=== PATIENT | female | born 1950 ===

== ENCOUNTER 2022-11-03 17:42 | Inpatient (IN) ==
[2022-11-03] MEDS ORDERED: Lactated Ringers 1000 ml BAG 1,000 ML IV ONE ×2 (18:18→21:39)
[2022-11-03 18:58] LABS: Activated Partial Thrombo Time 32.8 seconds (26.0-38.0); INR 1.04 (0.83-1.13)
[2022-11-03 19:02] LABS: Albumin 3.7 g/dL (3.2-5.2); Calcium 8.1 mg/dL (8.6-10.3); Total Bilirubin 0.4 mg/dL (0.2-1.0)
[2022-11-03 19:08] LABS: Albumin/Globulin Ratio 1.2 (1-3); C Reactive Protein 197.13 mg/L (<8.01); Creatinine, Serum 1.06 mg/dL (0.51-0.95); Total Protein 6.7 g/dL (6.4-8.9); eGFR CKD-EPI 55.1 (>60)
[2022-11-03 19:17] LABS: Hematocrit 37.8 % (35-45); Hemoglobin 12.5 g/dL (11.5-14.3); Mean Corpuscular Hemoglobin 28.4 pg (27-33); Mean Corpuscular Hgb Conc 33.1 g/dL (31-36); Red Blood Count 4.39 10^6/uL (3.63-4.92); White Blood Count 6.6 10^3/uL (3.8-11.8)
[2022-11-03 19:44] LABS: High Sensitivity Troponin 1 Hr 13 pg/mL (<15)
[2022-11-03] MEDS ORDERED: Piperacillin/Tazobac 3.375 BAG 3.375 GM/100 ML BAG IV ONE ×2 (19:44→20:17)
[2022-11-03 20:26] LABS: ABS Lymphocytes 0.7 10^3/uL (1.0-4.8); ABS Monocytes 0.2 10^3/uL (0.0-0.9); ABS Neutrophils 5.7 10^3/uL (1.5-7.6); Lymphocyte % 10.7 %; Mean Platelet Volume 9.5 fL (7.5-11.2); Platelet Count 92 10^3/uL (150-450)
[2022-11-03 20:27] LABS: Urine Appearance Cloudy; Urine Bilirubin Negative (Negative); Urine Blood 1+ (Negative); Urine Color Yellow; Urine Glucose Negative (Negative); Urine Ketones 1+ (Negative); Urine Nitrite Negative (Negative); Urine Protein 1+(30 mg/dL) (Negative); Urine Specific Gravity 1.019 (1.002-1.030); Urine Urobilinogen Negative (Negative)
[2022-11-03 21:05] LABS: Urine Bacteria Absent (Absent); Urine Red Blood Cell 1+(3-5/hpf) (Absent); Urine Squamous Epithelial Cell Present (Absent); Urine White Blood Cell Trace(0-5/hpf) (Absent)
[2022-11-03] MEDS ORDERED: DOXYcycline 100 MG in NS 0.9% 250 ml 250 ML IVPB ONE (21:15)
[2022-11-03] MEDS: Enoxaparin 40 MG/0.4 ML SYR SUBCUT SCH (23:59)
[2022-11-04 00:31] LABS: Urine Benzodiazepine Screen None Detected (None Detect); Urine Cannabinoids Screen None Detected (None Detect); Urine Opiates Screen None Detected (None Detect)
[2022-11-04 05:10] LABS: Hematocrit 32.5 % (35-45); Hemoglobin 11.2 g/dL (11.5-14.3); Mean Corpuscular Hemoglobin 29.3 pg (27-33); Mean Corpuscular Hgb Conc 34.4 g/dL (31-36); Mean Corpuscular Volume 85.2 fL (80-97); Red Blood Count 3.81 10^6/uL (3.63-4.92); White Blood Count 5.6 10^3/uL (3.8-11.8)
[2022-11-04 05:28] LABS: Calcium 7.5 mg/dL (8.6-10.3); Creatinine, Serum 1.11 mg/dL (0.51-0.95); Magnesium 1.9 mg/dL (1.9-2.7); Potassium 3.8 mmol/L (3.5-5.0); eGFR CKD-EPI 52.2 (>60)
[2022-11-04 07:00] LABS: ABS Monocytes 0.3 10^3/uL (0.0-0.9); ABS Neutrophils 4.3 10^3/uL (1.5-7.6); ABS Nucleated RBC 0.01 10^3/ul; Lymphocyte % 18.6 %; Nucleated Red Blood Cells % 0.1 /100 WBC (0.0-0.4); Platelet Count 60 10^3/uL (150-450)
[2022-11-04] MEDS ORDERED: DOXYcycline 100 MG in NS 0.9% 250 ml 250 ML IVPB SCH (09:00)
[2022-11-04] MEDS ORDERED: Magnesium Sulfate IV 1GM/100ML 1 GM/100 ML BAG IV ONE (17:31)
[2022-11-04] MEDS: Lactated Ringers 1000 ml BAG 1,000 ML IV SCH ×2 (18:16)
[2022-11-04] MEDS: DOXYcycline 100 MG in NS 0.9% 250 ml 250 ML IVPB SCH (21:24)
[2022-11-04] MEDS: Enoxaparin 40 MG/0.4 ML SYR SUBCUT SCH (21:27)
[2022-11-05 05:56] LABS: Hematocrit 31.4 % (35-45); Hemoglobin 10.9 g/dL (11.5-14.3); Mean Corpuscular Hemoglobin 29.2 pg (27-33); Mean Corpuscular Hgb Conc 34.7 g/dL (31-36); Mean Corpuscular Volume 84.1 fL (80-97); Mean Platelet Volume 11.1 fL (7.5-11.2); Platelet Count 46 10^3/uL (150-450); Red Blood Count 3.74 10^6/uL (3.63-4.92); Red Cell Distribution Width 13.8 % (12-17); White Blood Count 5.4 10^3/uL (3.8-11.8)
[2022-11-05 06:22] LABS: Calcium 8.1 mg/dL (8.6-10.3); Creatinine, Serum 0.77 mg/dL (0.51-0.95); Potassium 3.6 mmol/L (3.5-5.0); eGFR CKD-EPI 80.9 (>60)
[2022-11-05] MEDS: DOXYcycline 100 MG in NS 0.9% 250 ml 250 ML IVPB SCH (08:52)
[2022-11-05 14:20] VITALS: BP 159/50
[2022-11-06 19:54] LABS: Anaplasma phagocytophilum Positive (Negative); B. miyamotoi PCR, B Negative (Negative); Babesia divergens/MO-1 Negative (Negative); Babesia ducani Negative (Negative); Ehrlichia chaffeensis Negative (Negative); Ehrlichia ewingii/canis Negative (Negative); Ehrlichia muris eauclairensis Negative (Negative)
[2022-11-07 14:07] LABS: IgG Immunoblot Negative (Negative); IgM Immunoblot Negative (Negative)
== END 2022-11-05 16:09 | disposition home or self-care (01) | DRG 868 ==
LOC: EDHOLD 17:42 → ED 17:42 → SUATTDRO 22:20 → MEDTELE 11-04 15:46
PROVIDERS: ADMIT Student in an Organized Health Care Education/Training Program; ATTEND Hospitalist